=== PATIENT | female | born 1945 | race Caucasian/White ===

== ENCOUNTER → 2020-03-14 | Outpatient (CLI) | payer OTHER ==
[~2020-03-14] MED LIST: ASPIR 8181 M1 PO; CALCIUM 600 +1 EAC1 PO; CARVEDILOL3.125 MG PO; CATAPRES-TTS 20.2 MG TD; CLONIDINE0.1 PO; IBUPROFEN 600600 M1 PO; LAMICTAL100 MG PO; LIPITOR10 MG PO; MAXZIDE-25 MG1 EACH PO; NORCO 5-325 TA1 EACH PO; NORVASC5 M1 PO; PROTONIX40 M1 PO; PROTONIX40 M2 PO; TYLENOL325 MG PO; ZOFRAN ODT4 MG PO
== END ==
LOC: LAB 03-13 14:17
PROVIDERS: ATTEND Internal Medicine Gastroenterology
DX: Z01.812 Encounter for preprocedural laboratory examination (principal); Z20.828 Contact with and (suspected) exposure to other viral communicable diseases

== ENCOUNTER → 2020-03-19 | Outpatient (CLI) | payer OTHER ==
[~2020-03-19] VITALS: Ht 154.9 cm; Wt 66.7 kg
--- NOTE | 2020-03-21 07:09 | PATH ---
[facility] [address] [place] [address] PATHOLOGY RPT PROCEDURE Name: NAVIN CARLISLE Room #: REG LISA Urbano.#: [id number] Admission: 03/19/20 Date of : 49 Discharge: Report #: [id number] Path Case #: [id number] Note [facility] Accession Number: [id number] TESTS RESULT FLAG UNITS REF RANGE LAB Clinician Provided Cytology Information No. of containers..01 Other (Miscellaneous) Source: ESOPHAGEAL BRUSHING DIAGNOSIS: 02 ESOPHAGEAL BRUSHING NEGATIVE FOR MALIGNANT CELLS. REACTIVE CELLULAR CHANGES NOTED. FUNGAL ORGANISMS ARE PRESENT. Signed out by: 02 Jag Bird MD, Pathologist NPI- [id number] Performed by: 01 [employer] ([facility]) Gross description: 01 30ML, COLORLESS, 1TP 1CB /LCS 03/19/2020 1847 Local FLAG LEGEND: L-Low Normal,H-High Normal,LL-Alert Low,HH-Alert High <-Panic Low,>-Panic High,A-Abnormal,AA-Critical Abnormal Performed at: [address] [place] [address] Lokesh Jaquez MD, [address] [address] Jag Bird MD, Specimen Comment: A courtesy copy of this report has been sent to [phone] Specimen Comment: [id number] Specimen Comment: Report sent to / DR LEROY Specimen Comment: A duplicate report has been generated due to demographic updates. Performed at: [address], [place], [place] [id number] MD Lokesh Jaquez MD Phone: [phone]
== END | disposition home or self-care (01) ==
LOC: GI 08:15
PROVIDERS: ATTEND Internal Medicine Gastroenterology
DX: Z12.11 Encounter for screening for malignant neoplasm of colon (principal); K63.5 Polyp of colon; R13.10 Dysphagia, unspecified; R10.13 Epigastric pain; K22.9 Disease of esophagus, unspecified; I10 Essential (primary) hypertension; K21.9 Gastro-esophageal reflux disease without esophagitis; Z98.890 Other specified postprocedural states; Z79.899 Other long term (current) drug therapy; Z90.49 Acquired absence of other specified parts of digestive tract
CPT/HCPCS: 62110; 62900

== ENCOUNTER 2020-12-20 09:23 | Emergency (ER) | payer OTHER ==
[~2020-12-20] VITALS: Ht 154.9 cm; Wt 64.4 kg
[2020-12-20 09:57] LABS: ABSOLUTE NEUTROPHILS 2.3 thou/uL (1.4-8.2); BASOPHILS 0.3 % (0.0-2.0); HEMATOCRIT 36.2 % (37.0-47.0); HEMOGLOBIN 11.8 gm/dL (12.0-15.0); LYMPHOCYTES 29.8 % (24.0-44.0); MCH 29.4 pg (26.0-34.0); MCHC 32.6 g/dL (28.0-37.0); MCV 90.1 fL (80.0-100.0); MONOCYTES 9.1 % (1.0-8.0); PLATELET COUNT 297 thou/uL (150-400); POLYS 55.8 % (36.0-66.0); RBC 4.01 mil/uL (4.20-5.00); RDW 13.6 % (10.5-14.5); WBC 4.1 thou/uL (4.0-11.0)
[2020-12-20 10:02] LABS: CALCIUM 9.1 mg/dL (8.5-10.1); CREATININE 0.8 mg/dL (0.6-1.0); POTASSIUM 4.4 mmol/L (3.5-5.1)
[2020-12-20 10:03] LABS: URINE BILIRUBIN NEGATIVE (Negative); URINE BLOOD NEGATIVE (Negative); URINE CLARITY CLEAR; URINE COLOR YELLOW; URINE GLUCOSE-RANDOM* NEGATIVE (Negative); URINE KETONES NEGATIVE (Negative); URINE LEUKOCYTES-REFLEX 1+ (Negative); URINE NITRITE-REFLEX NEGATIVE (Negative); URINE PROTEIN (DIPSTICK) NEGATIVE (Negative); URINE UROBILINOGEN 0.2 E.U./dl (0.2-1.0)
[2020-12-20 10:08] LABS: ALBUMIN 3.1 g/dL (3.4-5.0); TOTAL BILIRUBIN 0.3 mg/dL (0.2-1.0); TOTAL PROTEIN 6.1 g/dL (6.4-8.2)
[2020-12-20 10:35] LABS: CASTS None Seen /LPF (None Seen); SQUAMOUS 0-3 Few /LPF (0-3); URINE RBC 1-2 Rare /HPF (NONE SEEN); URINE WBC-REFLEX 0-5 Rare /HPF (0-5)
[2020-12-20 10:36] LABS: BACTERIA-REFLEX 1-9 Few /HPF (None Seen); CRYSTALS None Seen /LPF (None Seen)
[2020-12-20 13:00] VITALS: BP 140/68
[2020-12-20] MEDS ORDERED: ZOFRAN ODT4 MG PO (13:14)
[2020-12-20] MEDS ORDERED: VALIUM2 MG PO ×2 (13:14→13:17)
--- NOTE | 2020-12-20 14:45 | EKG ---
[place] [address] [facility] [place] [address] ELECTROCARDIOGRAM REPORT Name: NAVIN CARLISLE Room #: DEP [facility] [id number] Admission: 12/20/20 Attend Phys: Discharge: 12/20/20 Date of : 49 Report #: [id number] [facility] ED Test Date: 2020-12-20 Test Time: 11:49:09 Pat Name: NAVIN CARLISLE Department: Room: Gender: F Foster Care Worker: : 1945 Requested By: Jeaneth Diop Order Number: [id number] MD: Jason Monroy Measurements Intervals [place] Rate: 80 P: -9 IA: 172 QRS: -4 QRSD: 86 T: 13 QT: 382 QTc: 441 Interpretive Statements Sinus rhythm Left ventricular hypertrophy Compared to ECG 11/29/2015 09:45:26 Sinus tachycardia no longer present Electronically Signed On 12-20-2020 14:44:55 CDT by Jason Monroy [email or web address] <ELECTRONICALLY SIGNED> By: Jason Monroy MD, [facility] 12/20/20 1444 1149 [id number] Jason Monroy MD, FACC /EPI
[2020-12-22] MEDS ORDERED: AMOXICILLIN 50500 M1 PO (13:22)
== END 2020-12-20 13:00 | disposition home or self-care (01) ==
LOC: ER 09:23
PROVIDERS: Emergency Medicine
DX: S01.01XA Laceration without foreign body of scalp, initial encounter (principal); R42 Dizziness and giddiness; I10 Essential (primary) hypertension; K21.9 Gastro-esophageal reflux disease without esophagitis; Z90.49 Acquired absence of other specified parts of digestive tract; Z98.890 Other specified postprocedural states; Z79.899 Other long term (current) drug therapy; W18.39XA Other fall on same level, initial encounter; Y93.89 Activity, other specified; Y92.89 Other specified places as the place of occurrence of the external cause; Y99.8 Other external cause status